=== PATIENT | female | born 1985 | race Two or more races ===

== ENCOUNTER 2016-09-06 10:27 | Emergency (ER) | payer OTHER ==
[2016-09-06] MEDS ORDERED: IPRATROPIUM 0.5MG/ALBUTEROL 2.5MG INH SOL UD 3ML (DUONEB)(J7620) As Ordered ONE (11:10)
[2016-09-06] MEDS ORDERED: ALBUTEROL SULFATE 2.5 MG/0.5 ML INH NEB SOLN As Ordered ONE (11:11)
[2016-09-06 11:27] LABS: BASO % 0.2 % (0.0-1.0); EOS # 0.1 K/mm3 (0.0-0.50); EOS % 1.1 % (0.0-3.0); LARGE UNSTAINED CELL # 0.2 K/mm3 (0.0-0.4); LARGE UNSTAINED CELL % 1.8 % (0.0-4.0); LYMPH # 1.5 K/mm3 (1.5-4.5); LYMPH % 14.6 % (24.0-44.0); MEAN CORPUSCULAR HEMOGLOBIN 30.6 pg (27.0-33.0); MEAN CORPUSCULAR HGB CONC 34.2 g/dl (32.0-36.5); MEAN CORPUSCULAR VOLUME 89.4 fl (80.0-96.0); MONO # 0.4 K/mm3 (0.0-0.8); MONO % 3.4 % (0.0-5.0); NEUTROPHILS # 8.1 K/mm3 (1.8-7.7); PLATELET COUNT, AUTOMATED 203 k/mm3 (150-450); RED CELL DISTRIBUTION WIDTH 12.6 % (11.5-14.5); WHITE BLOOD COUNT 10.3 K/mm3 (4.0-10.0)
[2016-09-06 11:49] LABS: ANION GAP 9 MEQ/L (8-16); BLOOD UREA NITROGEN 8 MG/DL (7-18); CALCIUM LEVEL 8.8 MG/DL (8.5-10.1); CARBON DIOXIDE LEVEL 24 MEQ/L (21-32); CHLORIDE LEVEL 105 MEQ/L (98-107); CREATININE FOR GFR 0.41 MG/DL (0.55-1.02); GLOMERULAR FILTRATION RATE > 60.0 (>60); GLUCOSE, FASTING 69 MG/DL (70-105); POTASSIUM SERUM 3.8 MEQ/L (3.5-5.1); SODIUM LEVEL 138 MEQ/L (136-145)
--- NOTE | 2016-09-06 12:04 | REP ---
BILATERAL LOWER EXTREMITY VENOUS DOPPLER, 09/06/2016: Indication: Left groin pain, shortness of breath, exclude DVT, the patient is 26 weeks . RIGHT LOWER EXTREMITY FINDINGS: Color-flow, spectral wave, and osorio scale imaging were used to evaluate the deep right lower extremity veins at common femoral, superficial femoral and popliteal venous levels. There is normal compressibility of veins at the above stated levels. There is normal response to augmentation of flow. The profunda femoris vein is also patent. IMPRESSION: No evidence of DVT in the right lower extremity. LEFT LOWER EXTREMITY FINDINGS: Color-flow, spectral wave, and osorio scale imaging were used to evaluate the deep left lower extremity vein, common femoral, superficial femoral and popliteal venous levels. There is normal compressibility of veins at the above stated levels. There is normal response to augmentation of flow. The profunda femoris vein is also patent. IMPRESSION: No evidence of DVT in the left lower extremity. Signed by Georgia Goddard MD 09/07/2016 07:29 P
[2016-09-06] MEDS ORDERED: ISOVUE-370 76% 100ML VIAL (Q9967) As Ordered ONE (12:33)
--- NOTE | 2016-09-06 13:15 | REP ---
Clinical: Acute chest pain and shortness of breath. Technique: Axial contrast enhanced images from the thoracic inlet to the upper abdomen using 100 ml Isovue 370 intravenous contrast material with coronal and sagittal re-formations. Findings: Satisfactory enhancement of the pulmonary vasculature is achieved and no filling defects are identified to suggest pulmonary embolus. Thoracic aorta is normal caliber without aneurysm or dissection. Heart and pericardium are normal. Bilateral lung villegas are well aerated and clear without acute pulmonary parenchymal consolidation or atelectasis. No nodule or mass lesion. No pleural effusion/reaction. No pneumothorax. No adenopathy. Impression: No evidence for pulmonary embolus. No acute pleuroparenchymal or mediastinal process. Signed by Corby Sullivan MD 09/06/2016 01:07 P
[2016-09-06] MEDS ORDERED: ALBUTEROL 90 MCG/ACT 8GM HFA INHALER As Ordered ONE (14:02)
--- NOTE | 2016-09-06 14:15 | EDDOCDS ---
Physician Documentation [facility] Name: Nicol Peck Age: 31 yrs Sex: Female : 1985 Arrival Date: 09/06/2016 Time: 10:27 Bed 7 Private MD: Ravi Vargas [facility] Disposition: 09/06/16 13:48 Discharged to Home/Self Care. Impression: related conditions, unspecified, Dyspnea, Strain of adductor muscle, fascia and tendon of left thigh. - Condition is Stable. - Discharge Instructions: Groin Strain, Shortness of Breath, Second Trimester of , [id number]. - Medication Reconciliation, Local Pharmacy Hours form. - Follow up: Ravi Vargas [facility]; When: Tomorrow. Follow up: MATTHEW Naylor; When: Tomorrow. Follow up: Kendall Guallpa MD; When: 1 - 2 days. - Problem is an acute exacerbation. - Symptoms have improved. - Notes: follow up with megan vargas ob as discussed tomorrow. return if worsening symptoms Historical: - Allergies: no known allergies; - Home Meds: 1. Oral 1 tablet daily 2. Tylenol 325 mg Oral tab 2 tabs every 4 hours (Last dose: 09/05/2016) - PMHx: none; - PSHx: Carpal Tunnel Repair- Bilateral; - Social history: Smoking status: Patient states was never smoker of tobacco. No barriers to communication noted, The patient speaks fluent Belarusian. - Family history: Not pertinent. - : The pt / caregiver states he / she is not on anticoagulants. Home medication list is obtained from the patient. - Exposure Risk Screening:: None identified. 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 (152.40 cm); 13:04 BP 104 / 57 (auto/); jmk 13:04 Pulse 104 MON; jmk 13:11 Pulse 96 MON; Pulse Ox 95% ; jmk 13:12 BP 116 / 55 (auto/); k 14:11 BP 101 / 63; Pulse 92; Resp 18; Temp 98.0; k 10:37 Body Mass Index 31.25 (72.57 kg, 152.40 cm) marimar MDM: 10:56 ECG WITH READING ER PHYS+CARDIAG ordered. EDMS 11:08 IV Saline Lock ordered. ml 11:08 Door Repairer Bus/Pulse Ox/q 15 min VS ordered. ml 11:08 Rhythm Strip to chart ordered. ml 11:08 Albuterol-Ipratropium 3 ml Inhalation once ordered. ml 11:08 Call Respiratory ordered. ml 11:08 Albuterol 5 mg Nebulizer once ordered. ml 11:08 Call Respiratory ordered. ml 11:08 Heart Tones ordered. ml 11:09 CBC with Diff Ordered. EDMS 11:09 MED Profile Ordered. EDMS 11:09 CIP Ordered. EDMS 11:09 Troponin Ordered. EDMS 11:12 US Lower Extremities Bilateral R/O DVT Ordered. EDMS 11:13 Call Respiratory complete. lbd 11:13 Call Respiratory complete. lbd 11:57 CBC with Diff Reviewed. ml 11:57 MED Profile Reviewed. ml 11:57 CIP Reviewed. ml 11:57 Troponin Reviewed. ml 11:57 Misc. Nursing Order ordered. ml 12:19 CT Chest Angio R/O PE Ordered. EDMS 12:30 US Lower Extremities Bilateral R/O DVT Reviewed. ml 13:05 PCR was scanned into MEDHOST and attached to record. gb 13:52 Ventolin Inhaler 2 puffs Inhalation once; to go ordered. ml Administered Medications: 11:13 Drug: Albuterol-Ipratropium 3 ml [ipratropium-albuterol 0.5 mg-3 mg(2.5 mg base)/3 mL sd7 nebulization soln (3 mL)] Route: Inhalation; 11:20 Follow up: Response: Nebulizer completed sd7 11:13 Drug: Albuterol 5 mg [albuterol sulfate 2.5 mg/0.5 mL solution for nebulization (1 mL)] sd7 Route: Nebulizer; 11:20 Follow up: Response: Nebulizer completed sd7 Signatures: Dispatcher [employer] EDAK Berta Miller MD MD ml Daly, Linda, Dryland Farmer Unit lbd Sudarshan Bishop,RN RN jmk Milagro Kenyon, Reg Reg gb Maria De Jesus De Los Santos RT sd7 MTDD
--- NOTE | 2016-09-06 14:15 | EDDOCDS ---
Nurse's Notes [facility] Name: Nicol Peck Age: 31 yrs Sex: Female : 1985 Arrival Date: 09/06/2016 Time: 10:27 Bed 7 Private MD: Ravi Vargas [facility] Diagnosis: related conditions, unspecified;Dyspnea;Strain of adductor muscle, fascia and tendon of left thigh Presentation: 09/06 10:33 Presenting complaint: Patient states: states intermittent SOB x months . Onset before k . not increasing intensity or frequency. also has left groin pain without injury. 26 weeks. . cough that is non productive. Aspirin was not taken prior to arrival. Adult Sepsis Screening: The patient does not have new or worsening altered mentation. Patient's respiratory rate is less than 22. Systolic blood pressure is greater than 100. Patient has a qSOFA score of 0- Negative Sepsis Screen. Suicide/Homicide risk assessment- the patient denies having any suicidal and/or homicidal ideations and does not present with any other emotional, behavioral or mental health complaints. 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 Transition of care: patient was not received from another setting of care. 10:33 Acuity: ZHANE Level 3 [facility] 10:33 Method Of Arrival: Ambulance [facility] Triage Assessment: 10:37 General: Appears in no apparent distress. Pain: Location: mid back area, left mid back jmk and right mid back Pain currently is 3 out of 10 on a pain scale. HIV screening NA for this visit Offered previously. Cardiovascular: Capillary refill < 3 seconds Clubbing of nail beds is absent Heart tones S1 S2 present Edema is absent. Rhythm is regular Chest pain is described as Pain is 3 out of 10 on a pain scale. Respiratory: Airway Respiratory effort is even, unlabored, Respiratory pattern is regular, Breath sounds are clear bilaterally. GI: Abdomen is gravid. 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 Oral 1 tablet daily 2. Tylenol 325 mg Oral tab 2 tabs every 4 hours (Last dose: 09/05/2016) - PMHx: none; - PSHx: Carpal Tunnel Repair- Bilateral; - Social history: Smoking status: Patient states was never smoker of tobacco. No barriers to communication noted, The patient speaks fluent Italian. - Family history: Not pertinent. - : The pt / caregiver states he / she is not on anticoagulants. Home medication list is obtained from the patient. - Exposure Risk Screening:: None identified. Screenin:43 Screening information is obtained from the patient. Fall risk: No risks identified. jmk Assistance ADL's: requires no assistance with activities of daily living. Abuse/DV Screen: The patient / caregiver reports he/she is: not in a situation that causes fear, pain or injury. Nutritional screening: No deficits noted. Advance Directives: Currently, there is no health care proxy. There is no active DNR order. There is no living will. There is no Power of Motor Power Connector. Advance directive information has not previously been placed in an [facility] medical record. Further advance directive information is declined. home support is adequate. Assessment: 10:51 General: Appears no observed resp distress while at rest. Tachypnea with physical jmk exertion, and pain increases. Gravid uterus. FHT 156 and of good quality. reports adequate activity and denies bleeding. describes discomfort to left groin . without injury.. Cardiovascular: Capillary refill < 3 seconds Heart tones S1 S2 present Rhythm is regular. Respiratory: No deficits noted. Airway is patent Respiratory effort is even, unlabored, Respiratory pattern is regular, Breath sounds are clear bilaterally. 13:05 General: pt down and back from imaging. NAD noted. Denies pain, states she is hungry. ttb SR on monitor. Sat WNL on RA. . 13:13 General: Appears without resp distress when at rest. continues to fatigue with k conversation and physical activity.. 14:11 General: Appears without resp distress when at rest.. receptive to discharge. familiar [facility] with inhaler and spacer.. Vital Signs: 10:37 BP 107 / 61; Pulse 88; Resp 16; Temp 96.5(O); Pulse Ox 95% ; Weight 72.57 kg; Height 60 jmk in. (152.40 cm); 13:04 BP 104 / 57 (auto/); jmk 13:04 Pulse 104 MON; jmk 13:11 Pulse 96 MON; Pulse Ox 95% ; jmk 13:12 BP 116 / 55 (auto/); jmk 14:11 BP 101 / 63; Pulse 92; Resp 18; Temp 98.0; jmk 10:37 Body Mass Index 31.25 (72.57 kg, 152.40 cm) [facility] Vitals: 10:37 Log In Time N/A - ambulance arrival. jmk 11:18 Heart Tones 156BPM. kc3 ED Course: 10:28 Patient visited by Mame Pierre, Aoc Director Combat Operations Officer. lbd 10:28 Patient moved to Waiting lbd 10:29 [place], [facility] is Private Physician. lbd 10:29 Patient moved to 7 lbd 10:36 Triage Initiated jmk 10:43 The patient / caregiver is instructed regarding the plan of care and ED course. jmk 10:54 Patient visited by Sudarshan Bishop,RN. jmk 10:55 Berta Miller MD is Attending Physician. ml 10:55 Patient visited by Berta Miller MD. ml 11:00 Inserted saline lock: 20 gauge. jmk 11:07 Patient visited by Adriano Chirinos PCA. jlf 11:07 Patient visited by Adriano Chirinos PCA. jlf 11:07 EKG done. (by ED staff). Reviewed by Berta Miller MD. jlf 11:27 Patient moved to Ultrasound hgl 11:43 Patient moved to 7 hgl 12:03 Patient visited by Adriano Chirinos PCA. jlf 12:19 US Lower Extremities Bilateral R/O DVT Returned. EDMS 12:43 Patient visited by Adriano Chirinos PCA. jlf 13:05 PCR was scanned into [employer] and attached to record. gb 13:07 Patient visited by Luna Palma, CHRISTAL. ttb 13:14 Patient visited by Sudarshan Bishop,CHRISTAL. jmk 13:48 [place], [facility] is Referral Physician. ml 13:48 Ravi Vargas, OB is Referral Physician. ml 13:48 Kendall Guallpa MD is Referral Physician. ml 14:11 CT Chest Angio R/O PE Returned. EDMS 14:14 Discontinued intact, bleeding controlled, pressure dressing applied, No [facility] redness/swelling at site. Administered Medications: 11:13 Drug: Albuterol-Ipratropium 3 ml [ipratropium-albuterol 0.5 mg-3 mg(2.5 mg base)/3 mL nebulization soln (3 mL)] Route: Inhalation; 11:20 Follow up: Response: Nebulizer completed 11:13 Drug: Albuterol 5 mg [albuterol sulfate 2.5 mg/0.5 mL solution for nebulization (1 mL)] Route: Nebulizer; 11:20 Follow up: Response: Nebulizer completed RT: 11:15 Initial Med Neb Given as ordered Patient was instructed and evaluated on procedure Patient tolerated procedure well without adverse effect. Respiratory: Airway is patent Respiratory effort is unlabored, Respiratory pattern is regular Breath sounds are clear bilaterally. Breath sounds are diminished bilaterally. Order Results: Lab Order: CBC with Diff; SPEC'M 09/06/16 10:56 Test: WHITE BLOOD COUNT; Value: 10.3; Range: 4.0-10.0; Abnormal: Above high normal; Units: K/mm3; Status: F Test: RED BLOOD COUNT; Value: 4.34; Range: 4.00-5.40; Units: M/mm3; Status: F Test: HEMOGLOBIN; Value: 13.3; Range: 12.0-16.0; Units: g/dl; Status: F Test: HEMATOCRIT; Value: 38.8; Range: 36.0-47.0; Units: %; Status: F Test: MEAN CORPUSCULAR VOLUME; Value: 89.4; Range: 80.0-96.0; Units: fl; Status: F Test: MEAN CORPUSCULAR HEMOGLOBIN; Value: 30.6; Range: 27.0-33.0; Units: pg; Status: F Test: MEAN CORPUSCULAR HGB CONC; Value: 34.2; Range: 32.0-36.5; Units: g/dl; Status: F Test: RED CELL DISTRIBUTION WIDTH; Value: 12.6; Range: 11.5-14.5; Units: %; Status: F Test: PLATELET COUNT, AUTOMATED; Value: 203; Range: 150-450; Units: k/mm3; Status: F Test: NEUTROPHILS %; Value: 79.0; Range: 36.0-66.0; Abnormal: Above high normal; Units: %; Status: F Test: LYMPH %; Value: 14.6; Range: 24.0-44.0; Abnormal: Below low normal; Units: %; Status: F Test: MONO %; Value: 3.4; Range: 0.0-5.0; Units: %; Status: F Test: EOS %; Value: 1.1; Range: 0.0-3.0; Units: %; Status: F Test: BASO %; Value: 0.2; Range: 0.0-1.0; Units: %; Status: F Test: LARGE UNSTAINED CELL %; Value: 1.8; Range: 0.0-4.0; Units: %; Status: F Test: NEUTROPHILS #; Value: 8.1; Range: 1.8-7.7; Abnormal: Above high normal; Units: K/mm3; Status: F Test: LYMPH #; Value: 1.5; Range: 1.5-4.5; Units: K/mm3; Status: F Test: MONO #; Value: 0.4; Range: 0.0-0.8; Units: K/mm3; Status: F Test: EOS #; Value: 0.1; Range: 0.0-0.50; Units: K/mm3; Status: F Test: BASO #; Value: 0.0; Range: 0.0-0.2; Units: K/mm3; Status: F Test: LARGE UNSTAINED CELL #; Value: 0.2; Range: 0.0-0.4; Units: K/mm3; Status: F Lab Order: [facility]; [facility]' 09/06/16 10:56 Test: GLUCOSE, FASTING; Value: 69; Range: 70-105; Abnormal: Below low normal; Units: MG/DL; Status: F Test: BLOOD UREA NITROGEN; Value: 8; Range: 7-18; Units: MG/DL; Status: F Test: CREATININE FOR GFR; Value: 0.41; Range: 0.55-1.02; Abnormal: Below low normal; Units: MG/DL; Status: F Test: GLOMERULAR FILTRATION RATE; Value: > 60.0; Range: >60; Status: F Test: SODIUM LEVEL; Value: 138; Range: 136-145; Units: MEQ/L; Status: F Test: POTASSIUM SERUM; Value: 3.8; Range: 3.5-5.1; Units: MEQ/L; Status: F Test: CHLORIDE LEVEL; Value: 105; Range: 98-107; Units: MEQ/L; Status: F Test: CARBON DIOXIDE LEVEL; Value: 24; Range: 21-32; Units: MEQ/L; Status: F Test: ANION GAP; Value: 9; Range: 8-16; Units: MEQ/L; Status: F Test: CALCIUM LEVEL; Value: 8.8; Range: 8.5-10.1; Units: MG/DL; Status: F Test Note: ; Units are mL/min/1.73 m2 Chronic Kidney Disease Staging per NKF: Stage I & II GFR >=60 Normal to Mildly Decreased Stage III GFR 30-59 Moderately Decreased Stage IV GFR 15-29 Severely Decreased Stage V GFR <15 Very Little GFR Left ESRD GFR <15 on CREATIVE ENGAGEMENT DIRECTOR Lab Order: CIP; SPEC'M 09/06/16 10:56 Test: CPK CREATINE PHOSPHOKINASE; Value: 25; Range: 26-192; Abnormal: Below low normal; Units: U/L; Status: F Test: CK-MB VALUE MASS; Value: 1.0; Range: 0.0-3.6; Units: NG/ML; Status: F Test: MB/CK RELATIVE INDEX; Value: 4.00; Range: < OR =4; Status: F Test Note: ; DIAGNOSIS CRITERIA MMB ng/ml Relative Index (RI) NON-AMI < or = 5 N/A FIELDS ZONE > 5 < or = 4 AMI > 5 > 4 Lab Order: Troponin; SPEC'M 09/06/16 10:56 Test: TROPONIN I; Value: < 0.02; Range: < 0.10; Units: NG/ML; Status: F Test Note: ; Troponin I Reference Interval for Biletu LOCI: 99th Percentile= 0.00-0.045 ng/ml Risk Stratification: <= 0.10 ng/ml Decreased Risk for Adverse Clinical Events. 0.10-1.50 ng/ml Increased Risk for Adverse Clinical Events. Evaluation of additional criterion and/or repeat testing in 2-6 hours is suggested to rule out myocardial damage. >= 1.50 ng/ml Indicative of Myocardial Injury. Radiology Order: US Lower Extremities Bilateral R/O DVT Test: US Lower Extremities Bilateral R/O DVT REASON FOR EXAMINATION: left gron pain ru dvt, assess both legs as sob; BILATERAL LOWER EXTREMITY VENOUS DOPPLER, 09/06/2016:; ; Indication: Left groin pain, shortness of breath, exclude DVT, the patient is 26; weeks .; ; RIGHT LOWER EXTREMITY FINDINGS:; Color-flow, spectral wave, and fields scale imaging were used to evaluate the lower; extremity vein, common femoral, superficial femoral and popliteal venous levels.; There is normal compressibility of veins at the above stated levels. There is; normal response to augmentation of flow. The profunda femoris vein is also; patent.; ; IMPRESSION:; No evidence of DVT in the right lower extremity.; ; LEFT LOWER EXTREMITY FINDINGS:; Color-flow, spectral wave, and fields scale imaging were used to evaluate the lower; extremity vein, common femoral, superficial femoral and popliteal venous levels.; There is normal compressibility of veins at the above stated levels. There is; normal response to augmentation of flow. The profunda femoris vein is also; patent.; ; IMPRESSION:; No evidence of DVT in the left lower extremity.; ; ; ; ; ; ; ; ; ; Unreviewed; Radiology Order: CT Chest Angio R/O PE Test: CT Chest Angio R/O PE REASON FOR EXAMINATION: sob; Clinical: Acute chest pain and shortness of breath.; ; Technique: Axial contrast enhanced images from the thoracic inlet to the upper; abdomen using 100 ml Isovue 370 intravenous contrast material with coronal and; sagittal re-formations.; ; Findings: Satisfactory enhancement of the pulmonary vasculature is achieved and; no filling defects are identified to suggest pulmonary embolus. Thoracic aorta; is normal caliber without aneurysm or dissection. Heart and pericardium are; normal. Bilateral lung villegas are well aerated and clear without acute pulmonary; parenchymal consolidation or atelectasis. No nodule or mass lesion. No pleural; effusion/reaction. No pneumothorax. No adenopathy.; ; Impression:; No evidence for pulmonary embolus.; No acute pleuroparenchymal or mediastinal process.; ; ; Signed by; Corby Sullivan MD 09/06/2016 01:07 P; Outcome: 13:48 Discharge ordered by Provider. ml 14:14 Discharge Assessment: Patient awake, alert and oriented x 3. No cognitive and/or jmk functional deficits noted. Patient verbalized understanding of disposition instructions. patient administered narcotics - no. The following High Risk Discharge criteria are identified: None. Condition: good. Discharge instructions given to patient, Instructed on discharge instructions, follow up and referral plans. medication usage, Demonstrated understanding of instructions, medications, Pt was receptive of discharge instructions/ teaching. CT Study completed. Property :Personal belongings accompany Pt. 14:14 Patient left the ED. giovanni Signatures: Dispatcher [employer] EDMS Berta Miller MD MD ml Mame Pierre, Aoc Director Combat Operations Officer Unit lbd Sudarshan Bishop,RN RN Milagro Whitehead, Reg Reg gb Ly, Vladimir hgl Luna Palma, RN RN ttb Adriano Chirinos, CERTIFIED CYTOTECHNOLOGIST CERTIFIED CYTOTECHNOLOGIST jlf Maria De Jesus De Los Santos,RT RT sd7 Radha Casas,RN RN kc3 Corrections: (The following items were deleted from the chart) 10:43 10:33 Presenting complaint: Patient states: states intermittent SOB x months . not jmk increasing intensity or frequency. also has left groin pain without injury. 26 weeks. . cough that is non productive. giovanni MTDD
--- NOTE | 2016-09-06 18:09 | ECGEPIP ---
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
--- NOTE | 2016-09-08 15:16 | EDDOCDS ---
Physician Documentation [facility] Name: Nicol Peck Age: 31 yrs Sex: Female : 1985 Arrival Date: 09/06/2016 Time: 10:27 Bed 7 Private MD: Ravi Vargas [facility] Disposition: 09/06/16 13:48 Discharged to Home/Self Care. Impression: related conditions, unspecified, Dyspnea, Strain of adductor muscle, fascia and tendon of left thigh. - Condition is Stable. - Discharge Instructions: Groin Strain, Shortness of Breath, Second Trimester of , [id number]. - Medication Reconciliation, Local Pharmacy Hours form. - Follow up: Ravi Vargas [facility]; When: Tomorrow. Follow up: MATTHEW Naylor; When: Tomorrow. Follow up: Kendall Guallpa MD; When: 1 - 2 days. - Problem is an acute exacerbation. - Symptoms have improved. - Notes: follow up with megan vargas ob as discussed tomorrow. return if worsening symptoms Historical: - Allergies: no known allergies; - Home Meds: 1. Oral 1 tablet daily 2. Tylenol 325 mg Oral tab 2 tabs every 4 hours (Last dose: 09/05/2016) - PMHx: none; - PSHx: Carpal Tunnel Repair- Bilateral; - Social history: Smoking status: Patient states was never smoker of tobacco. No barriers to communication noted, The patient speaks fluent Armenian. - Family history: Not pertinent. - : The pt / caregiver states he / she is not on anticoagulants. Home medication list is obtained from the patient. - Exposure Risk Screening:: None identified. PET CARE ATTENDANT: 09/06 10:37 4, Full Term 2, LMP 03/08/2016, Verified, EDC 12/13/2016, Gestational jmk age from LMP: 26 weeks 0 days Vital Signs: 10:37 BP 107 / 61; Pulse 88; Resp 16; Temp 96.5(O); Pulse Ox 95% ; Weight 72.57 kg / 159.99 jmk lbs; Height 60 in. (152.40 cm); 13:04 BP 104 / 57 (auto/); jmk 13:04 Pulse 104 MON; jmk 13:11 Pulse 96 MON; Pulse Ox 95% ; jmk 13:12 BP 116 / 55 (auto/); k 14:11 BP 101 / 63; Pulse 92; Resp 18; Temp 98.0; k 10:37 Body Mass Index 31.25 (72.57 kg, 152.40 cm) marimar MDM: 10:56 ECG WITH READING ER PHYS+CARDIAG ordered. EDMS 11:08 IV Saline Lock ordered. ml 11:08 Oral Hygienist/Pulse Ox/q 15 min VS ordered. ml 11:08 Rhythm Strip to chart ordered. ml 11:08 Albuterol-Ipratropium 3 ml Inhalation once ordered. ml 11:08 Call Respiratory ordered. ml 11:08 Albuterol 5 mg Nebulizer once ordered. ml 11:08 Call Respiratory ordered. ml 11:08 Heart Tones ordered. ml 11:09 CBC with Diff Ordered. EDMS 11:09 MED Profile Ordered. EDMS 11:09 CIP Ordered. EDMS 11:09 Troponin Ordered. EDMS 11:12 US Lower Extremities Bilateral R/O DVT Ordered. EDMS 11:13 Call Respiratory complete. lbd 11:13 Call Respiratory complete. lbd 11:57 CBC with Diff Reviewed. ml 11:57 MED Profile Reviewed. ml 11:57 CIP Reviewed. ml 11:57 Troponin Reviewed. ml 11:57 Misc. Nursing Order ordered. ml 12:19 CT Chest Angio R/O PE Ordered. EDMS 12:30 US Lower Extremities Bilateral R/O DVT Reviewed. ml 13:05 PCR was scanned into [employer] and attached to record. gb 13:52 Ventolin Inhaler 2 puffs Inhalation once; to go ordered. ml 15:21 T-Sheet-- Draft Copy was scanned into [employer] and attached to record. gb 15:21 ECG/EKG was scanned into [employer] and attached to record. gb 15:21 Radiology Report was scanned into [employer] and attached to record. gb 01 10:49 [facility] Payment Agreement was scanned into [employer] and attached to record. lg Administered Medications: 09/06 11:13 Drug: Albuterol-Ipratropium 3 ml [ipratropium-albuterol 0.5 mg-3 mg(2.5 mg base)/3 mL sd7 nebulization soln (3 mL)] Route: Inhalation; 11:20 Follow up: Response: Nebulizer completed sd 11:13 Drug: Albuterol 5 mg [albuterol sulfate 2.5 mg/0.5 mL solution for nebulization (1 mL)] Route: Nebulizer; 11:20 Follow up: Response: Nebulizer completed Signatures: Dispatcher [employer] EDMS Berta Miller MD MD ml Mame Pierre, Finance Effectiveness Manager Unit lbd Sudarshan Bishop,RN RN jmk Milagro Kenyon, Reg Reg gb Tk Tyler, Reg Reg lg Maria De Jesus De Los Santos RT The chart was reviewed and I authenticate all verbal orders and agree with the evaluation and treatment provided.Attachments: 15:21 T-Sheet-- Draft Copy gb 15:21 ECG/EKG gb 09/07 10:49 [facility] Payment Agreement lg Chart [facility]
--- NOTE | 2016-09-08 15:16 | EDDOCDS ---
Physician Documentation [facility] Name: Nicol Peck Age: 31 yrs Sex: Female : 1985 Arrival Date: 09/06/2016 Time: 10:27 Bed 7 Private MD: Ravi Vargas [facility] Disposition: 09/06/16 13:48 Discharged to Home/Self Care. Impression: related conditions, unspecified, Dyspnea, Strain of adductor muscle, fascia and tendon of left thigh. - Condition is Stable. - Discharge Instructions: Groin Strain, Shortness of Breath, Second Trimester of , [id number]. - Medication Reconciliation, Local Pharmacy Hours form. - Follow up: Ravi Vargas [facility]; When: Tomorrow. Follow up: MATTHEW Naylor; When: Tomorrow. Follow up: Kendall Guallpa MD; When: 1 - 2 days. - Problem is an acute exacerbation. - Symptoms have improved. - Notes: follow up with megan vargas ob as discussed tomorrow. return if worsening symptoms Historical: - Allergies: no known allergies; - Home Meds: 1. Oral 1 tablet daily 2. Tylenol 325 mg Oral tab 2 tabs every 4 hours (Last dose: 09/05/2016) - PMHx: none; - PSHx: Carpal Tunnel Repair- Bilateral; - Social history: Smoking status: Patient states was never smoker of tobacco. No barriers to communication noted, The patient speaks fluent Luxembourgish. - Family history: Not pertinent. - : The pt / caregiver states he / she is not on anticoagulants. Home medication list is obtained from the patient. - Exposure Risk Screening:: None identified. CLERK TRAVEL RESERVATIONS: 09/06 10:37 4, Full Term 2, LMP 03/08/2016, Verified, EDC 12/13/2016, Gestational jmk age from LMP: 26 weeks 0 days Vital Signs: 10:37 BP 107 / 61; Pulse 88; Resp 16; Temp 96.5(O); Pulse Ox 95% ; Weight 72.57 kg / 159.99 jmk lbs; Height 60 in. (152.40 cm); 13:04 BP 104 / 57 (auto/); jmk 13:04 Pulse 104 MON; jmk 13:11 Pulse 96 MON; Pulse Ox 95% ; jmk 13:12 BP 116 / 55 (auto/); k 14:11 BP 101 / 63; Pulse 92; Resp 18; Temp 98.0; k 10:37 Body Mass Index 31.25 (72.57 kg, 152.40 cm) marimar MDM: 10:56 ECG WITH READING ER PHYS+CARDIAG ordered. EDMS 11:08 IV Saline Lock ordered. ml 11:08 Diesel Service Technician/Pulse Ox/q 15 min VS ordered. ml 11:08 Rhythm Strip to chart ordered. ml 11:08 Albuterol-Ipratropium 3 ml Inhalation once ordered. ml 11:08 Call Respiratory ordered. ml 11:08 Albuterol 5 mg Nebulizer once ordered. ml 11:08 Call Respiratory ordered. ml 11:08 Heart Tones ordered. ml 11:09 CBC with Diff Ordered. EDMS 11:09 MED Profile Ordered. EDMS 11:09 CIP Ordered. EDMS 11:09 Troponin Ordered. EDMS 11:12 US Lower Extremities Bilateral R/O DVT Ordered. EDMS 11:13 Call Respiratory complete. lbd 11:13 Call Respiratory complete. lbd 11:57 CBC with Diff Reviewed. ml 11:57 MED Profile Reviewed. ml 11:57 CIP Reviewed. ml 11:57 Troponin Reviewed. ml 11:57 Misc. Nursing Order ordered. ml 12:19 CT Chest Angio R/O PE Ordered. EDMS 12:30 US Lower Extremities Bilateral R/O DVT Reviewed. ml 13:05 PCR was scanned into [employer] and attached to record. gb 13:52 Ventolin Inhaler 2 puffs Inhalation once; to go ordered. ml 15:21 T-Sheet-- Draft Copy was scanned into [employer] and attached to record. gb 15:21 ECG/EKG was scanned into [employer] and attached to record. gb 15:21 Radiology Report was scanned into [employer] and attached to record. gb 01 10:49 [facility] Payment Agreement was scanned into [employer] and attached to record. lg Administered Medications: 09/06 11:13 Drug: Albuterol-Ipratropium 3 ml [ipratropium-albuterol 0.5 mg-3 mg(2.5 mg base)/3 mL sd7 nebulization soln (3 mL)] Route: Inhalation; 11:20 Follow up: Response: Nebulizer completed sd 11:13 Drug: Albuterol 5 mg [albuterol sulfate 2.5 mg/0.5 mL solution for nebulization (1 mL)] Route: Nebulizer; 11:20 Follow up: Response: Nebulizer completed Signatures: Dispatcher [employer] EDMS Berta Miller MD MD ml Mame Pierre, Records Technician Unit lbd Sudarshan Bishop,RN RN jmk Milagro Kenyon, Reg Reg gb Tk Tyler, Reg Reg lg Maria De Jesus De Los Santos RT The chart was reviewed and I authenticate all verbal orders and agree with the evaluation and treatment provided.Attachments: 15:21 T-Sheet-- Draft Copy gb 15:21 ECG/EKG gb 09/07 10:49 [facility] Payment Agreement lg Chart [facility]
--- NOTE | 2016-09-08 15:16 | EDDOCDS ---
Nurse's Notes [facility] Name: Nicol Peck Age: 31 yrs Sex: Female : 1985 Arrival Date: 09/06/2016 Time: 10:27 Bed 7 Private MD: Ravi Vargas [facility] Diagnosis: related conditions, unspecified;Dyspnea;Strain of adductor muscle, fascia and tendon of left thigh Presentation: 09/06 10:33 Presenting complaint: Patient states: states intermittent SOB x months . Onset before k . not increasing intensity or frequency. also has left groin pain without injury. 26 weeks. . cough that is non productive. Aspirin was not taken prior to arrival. Adult Sepsis Screening: The patient does not have new or worsening altered mentation. Patient's respiratory rate is less than 22. Systolic blood pressure is greater than 100. Patient has a qSOFA score of 0- Negative Sepsis Screen. Suicide/Homicide risk assessment- the patient denies having any suicidal and/or homicidal ideations and does not present with any other emotional, behavioral or mental health complaints. 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 Transition of care: patient was not received from another setting of care. 10:33 Acuity: ZHANE Level 3 [facility] 10:33 Method Of Arrival: Ambulance [facility] Triage Assessment: 10:37 General: Appears in no apparent distress. Pain: Location: mid back area, left mid back jmk and right mid back Pain currently is 3 out of 10 on a pain scale. HIV screening NA for this visit Offered previously. Cardiovascular: Capillary refill < 3 seconds Clubbing of nail beds is absent Heart tones S1 S2 present Edema is absent. Rhythm is regular Chest pain is described as Pain is 3 out of 10 on a pain scale. Respiratory: Airway Respiratory effort is even, unlabored, Respiratory pattern is regular, Breath sounds are clear bilaterally. GI: Abdomen is gravid. MATERIAL CLERK: 10:37 4, Full Term 2, LMP 03/08/2016, Verified, EDC 12/13/2016, Gestational jmk age from LMP: 26 weeks 0 days Historical: - Allergies: no known allergies; - Home Meds: 1. Oral 1 tablet daily 2. Tylenol 325 mg Oral tab 2 tabs every 4 hours (Last dose: 09/05/2016) - PMHx: none; - PSHx: Carpal Tunnel Repair- Bilateral; - Social history: Smoking status: Patient states was never smoker of tobacco. No barriers to communication noted, The patient speaks fluent South African. - Family history: Not pertinent. - : The pt / caregiver states he / she is not on anticoagulants. Home medication list is obtained from the patient. - Exposure Risk Screening:: None identified. Screenin:43 Screening information is obtained from the patient. Fall risk: No risks identified. jmk Assistance ADL's: requires no assistance with activities of daily living. Abuse/DV Screen: The patient / caregiver reports he/she is: not in a situation that causes fear, pain or injury. Nutritional screening: No deficits noted. Advance Directives: Currently, there is no health care proxy. There is no active DNR order. There is no living will. There is no Power of Bench Molder. Advance directive information has not previously been placed in an [facility] medical record. Further advance directive information is declined. home support is adequate. Assessment: 10:51 General: Appears no observed resp distress while at rest. Tachypnea with physical jmk exertion, and pain increases. Gravid uterus. FHT 156 and of good quality. reports adequate activity and denies bleeding. describes discomfort to left groin . without injury.. Cardiovascular: Capillary refill < 3 seconds Heart tones S1 S2 present Rhythm is regular. Respiratory: No deficits noted. Airway is patent Respiratory effort is even, unlabored, Respiratory pattern is regular, Breath sounds are clear bilaterally. 13:05 General: pt down and back from imaging. NAD noted. Denies pain, states she is hungry. ttb SR on monitor. Sat WNL on RA. . 13:13 General: Appears without resp distress when at rest. continues to fatigue with k conversation and physical activity.. 14:11 General: Appears without resp distress when at rest.. receptive to discharge. familiar [facility] with inhaler and spacer.. Vital Signs: 10:37 BP 107 / 61; Pulse 88; Resp 16; Temp 96.5(O); Pulse Ox 95% ; Weight 72.57 kg; Height 60 jmk in. (152.40 cm); 13:04 BP 104 / 57 (auto/); jmk 13:04 Pulse 104 MON; jmk 13:11 Pulse 96 MON; Pulse Ox 95% ; jmk 13:12 BP 116 / 55 (auto/); jmk 14:11 BP 101 / 63; Pulse 92; Resp 18; Temp 98.0; jmk 10:37 Body Mass Index 31.25 (72.57 kg, 152.40 cm) [facility] Vitals: 10:37 Log In Time N/A - ambulance arrival. jmk 11:18 Heart Tones 156BPM. kc3 ED Course: 10:28 Patient visited by Mame Pierre, [employer]. lbd 10:28 Patient moved to Waiting lbd 10:29 [facility] is Private Physician. lbd 10:29 Patient moved to 7 lbd 10:36 Triage Initiated jmk 10:43 The patient / caregiver is instructed regarding the plan of care and ED course. jmk 10:54 Patient visited by Sudarshan Bishop,RN. jmk 10:55 Berta Miller MD is Attending Physician. ml 10:55 Patient visited by Berta Miller MD. ml 11:00 Inserted saline lock: 20 gauge. jmk 11:07 Patient visited by Adriano Chirinos PCA. jlf 11:07 Patient visited by Adriano Chirinos PCA. jlf 11:07 EKG done. (by ED staff). Reviewed by Berta Miller MD. jlf 11:27 Patient moved to Ultrasound hgl 11:43 Patient moved to 7 hgl 12:03 Patient visited by Adriano Chirinos PCA. jlf 12:19 US Lower Extremities Bilateral R/O DVT Returned. EDMS 12:43 Patient visited by Adriano Chirinos PCA. jlf 13:05 PCR was scanned into [employer] and attached to record. gb 13:07 Patient visited by Luna Palma, CHRISTAL. ttb 13:14 Patient visited by Sudarshan Bishop,CHRISTAL. jmk 13:48 [facility], [facility] is Referral Physician. ml 13:48 Ravi Vargas, OB is Referral Physician. ml 13:48 Kendall Guallpa MD is Referral Physician. ml 14:11 CT Chest Angio R/O PE Returned. EDMS 14:14 Discontinued intact, bleeding controlled, pressure dressing applied, No k redness/swelling at site. 15:21 T-Sheet-- Draft Copy was scanned into [employer] and attached to record. gb 15:21 ECG/EKG was scanned into [employer] and attached to record. gb 15:21 Radiology Report was scanned into [employer] and attached to record. gb 18:09 EKG-ADULT Returned. EDMS 09/07 10:48 Patient name changed from Nicol\S\\S\Peck\S\ to Nicol\S\Jazzmine\S\Peck. EDMS 10:49 [facility] Payment Agreement was scanned into [employer] and attached to record. lg 20:00 US Lower Extremities Bilateral R/O DVT Returned. EDMS Administered Medications: 09/06 11:13 Drug: Albuterol-Ipratropium 3 ml [ipratropium-albuterol 0.5 mg-3 mg(2.5 mg base)/3 mL sd7 nebulization soln (3 mL)] Route: Inhalation; 11:20 Follow up: Response: Nebulizer completed sd7 11:13 Drug: Albuterol 5 mg [albuterol sulfate 2.5 mg/0.5 mL solution for nebulization (1 mL)] sd7 Route: Nebulizer; 11:20 Follow up: Response: Nebulizer completed sd7 RT: 11:15 Initial Med Neb Given as ordered Patient was instructed and evaluated on procedure sd7 Patient tolerated procedure well without adverse effect. Respiratory: Airway is patent Respiratory effort is unlabored, Respiratory pattern is regular Breath sounds are clear bilaterally. Breath sounds are diminished bilaterally. Order Results: Lab Order: CBC with Diff; SPEC'M 09/06/16 10:56 Test: WHITE BLOOD COUNT; Value: 10.3; Range: 4.0-10.0; Abnormal: Above high normal; Units: K/mm3; Status: F Test: RED BLOOD COUNT; Value: 4.34; Range: 4.00-5.40; Units: M/mm3; Status: F Test: HEMOGLOBIN; Value: 13.3; Range: 12.0-16.0; Units: g/dl; Status: F Test: HEMATOCRIT; Value: 38.8; Range: 36.0-47.0; Units: %; Status: F Test: MEAN CORPUSCULAR VOLUME; Value: 89.4; Range: 80.0-96.0; Units: fl; Status: F Test: MEAN CORPUSCULAR HEMOGLOBIN; Value: 30.6; Range: 27.0-33.0; Units: pg; Status: F Test: MEAN CORPUSCULAR HGB CONC; Value: 34.2; Range: 32.0-36.5; Units: g/dl; Status: F Test: RED CELL DISTRIBUTION WIDTH; Value: 12.6; Range: 11.5-14.5; Units: %; Status: F Test: PLATELET COUNT, AUTOMATED; Value: 203; Range: 150-450; Units: k/mm3; Status: F Test: NEUTROPHILS %; Value: 79.0; Range: 36.0-66.0; Abnormal: Above high normal; Units: %; Status: F Test: LYMPH %; Value: 14.6; Range: 24.0-44.0; Abnormal: Below low normal; Units: %; Status: F Test: MONO %; Value: 3.4; Range: 0.0-5.0; Units: %; Status: F Test: EOS %; Value: 1.1; Range: 0.0-3.0; Units: %; Status: F Test: BASO %; Value: 0.2; Range: 0.0-1.0; Units: %; Status: F Test: LARGE UNSTAINED CELL %; Value: 1.8; Range: 0.0-4.0; Units: %; Status: F Test: NEUTROPHILS #; Value: 8.1; Range: 1.8-7.7; Abnormal: Above high normal; Units: K/mm3; Status: F Test: LYMPH #; Value: 1.5; Range: 1.5-4.5; Units: K/mm3; Status: F Test: MONO #; Value: 0.4; Range: 0.0-0.8; Units: K/mm3; Status: F Test: EOS #; Value: 0.1; Range: 0.0-0.50; Units: K/mm3; Status: F Test: BASO #; Value: 0.0; Range: 0.0-0.2; Units: K/mm3; Status: F Test: LARGE UNSTAINED CELL #; Value: 0.2; Range: 0.0-0.4; Units: K/mm3; Status: F Lab Order: MED Profile; SPEC'M 09/06/16 10:56 Test: GLUCOSE, FASTING; Value: 69; Range: 70-105; Abnormal: Below low normal; Units: MG/DL; Status: F Test: BLOOD UREA NITROGEN; Value: 8; Range: 7-18; Units: MG/DL; Status: F Test: CREATININE FOR GFR; Value: 0.41; Range: 0.55-1.02; Abnormal: Below low normal; Units: MG/DL; Status: F Test: GLOMERULAR FILTRATION RATE; Value: > 60.0; Range: >60; Status: F Test: SODIUM LEVEL; Value: 138; Range: 136-145; Units: MEQ/L; Status: F Test: POTASSIUM SERUM; Value: 3.8; Range: 3.5-5.1; Units: MEQ/L; Status: F Test: CHLORIDE LEVEL; Value: 105; Range: 98-107; Units: MEQ/L; Status: F Test: CARBON DIOXIDE LEVEL; Value: 24; Range: 21-32; Units: MEQ/L; Status: F Test: ANION GAP; Value: 9; Range: 8-16; Units: MEQ/L; Status: F Test: CALCIUM LEVEL; Value: 8.8; Range: 8.5-10.1; Units: MG/DL; Status: F Test Note: ; Units are mL/min/1.73 m2 Chronic Kidney Disease Staging per NKF: Stage I & II GFR >=60 Normal to Mildly Decreased Stage III GFR 30-59 Moderately Decreased Stage IV GFR 15-29 Severely Decreased Stage V GFR <15 Very Little GFR Left ESRD GFR <15 on SAMPLE BUILDER Lab Order: CIP; SPEC'M 09/06/16 10:56 Test: CPK CREATINE PHOSPHOKINASE; Value: 25; Range: 26-192; Abnormal: Below low normal; Units: U/L; Status: F Test: CK-MB VALUE MASS; Value: 1.0; Range: 0.0-3.6; Units: NG/ML; Status: F Test: MB/CK RELATIVE INDEX; Value: 4.00; Range: < OR =4; Status: F Test Note: ; DIAGNOSIS CRITERIA MMB ng/ml Relative Index (RI) NON-AMI < or = 5 N/A FIELDS ZONE > 5 < or = 4 AMI > 5 > 4 Lab Order: Troponin; SPEC'M 09/06/16 10:56 Test: TROPONIN I; Value: < 0.02; Range: < 0.10; Units: NG/ML; Status: F Test Note: ; Troponin I Reference Interval for [employer] [place] LOCI: 99th Percentile= 0.00-0.045 ng/ml Risk Stratification: <= 0.10 ng/ml Decreased Risk for Adverse Clinical Events. 0.10-1.50 ng/ml Increased Risk for Adverse Clinical Events. Evaluation of additional criterion and/or repeat testing in 2-6 hours is suggested to rule out myocardial damage. >= 1.50 ng/ml Indicative of Myocardial Injury. Radiology Order: US Lower Extremities Bilateral R/O DVT Test: US Lower Extremities Bilateral R/O DVT REASON FOR EXAMINATION: left gron pain ru dvt, assess both legs as sob; BILATERAL LOWER EXTREMITY VENOUS DOPPLER, 09/06/2016:; ; Indication: Left groin pain, shortness of breath, exclude DVT, the patient is 26; weeks .; ; RIGHT LOWER EXTREMITY FINDINGS:; ; Color-flow, spectral wave, and fields scale imaging were used to evaluate the deep; right lower extremity veins at common femoral, superficial femoral and popliteal; venous levels. There is normal compressibility of veins at the above stated; levels. There is normal response to augmentation of flow. The profunda femoris; vein is also patent.; ; IMPRESSION:; ; No evidence of DVT in the right lower extremity.; ; LEFT LOWER EXTREMITY FINDINGS:; ; Color-flow, spectral wave, and fields scale imaging were used to evaluate the deep; left lower extremity vein, common femoral, superficial femoral and popliteal; venous levels. There is normal compressibility of veins at the above stated; levels. There is normal response to augmentation of flow. The profunda femoris; vein is also patent.; ; IMPRESSION:; ; No evidence of DVT in the left lower extremity.; ; ; ; ; ; ; ; ; Signed by; Georgia Goddard MD 09/07/2016 07:29 P; Radiology Order: CT Chest Angio R/O PE Test: CT Chest Angio R/O PE REASON FOR EXAMINATION: sob; Clinical: Acute chest pain and shortness of breath.; ; Technique: Axial contrast enhanced images from the thoracic inlet to the upper; abdomen using 100 ml Isovue 370 intravenous contrast material with coronal and; sagittal re-formations.; ; Findings: Satisfactory enhancement of the pulmonary vasculature is achieved and; no filling defects are identified to suggest pulmonary embolus. Thoracic aorta; is normal caliber without aneurysm or dissection. Heart and pericardium are; normal. Bilateral lung villegas are well aerated and clear without acute pulmonary; parenchymal consolidation or atelectasis. No nodule or mass lesion. No pleural; effusion/reaction. No pneumothorax. No adenopathy.; ; Impression:; No evidence for pulmonary embolus.; No acute pleuroparenchymal or mediastinal process.; ; ; Signed by; Corby Sullivan MD 09/06/2016 01:07 P; Outcome: 13:48 Discharge ordered by Provider. ml 14:14 Discharge Assessment: Patient awake, alert and oriented x 3. No cognitive and/or jmk functional deficits noted. Patient verbalized understanding of disposition instructions. patient administered narcotics - no. The following High Risk Discharge criteria are identified: None. Condition: good. Discharge instructions given to patient, Instructed on discharge instructions, follow up and referral plans. medication usage, Demonstrated understanding of instructions, medications, Pt was receptive of discharge instructions/ teaching. CT Study completed. Property :Personal belongings accompany Pt. 14:14 Patient left the ED. giovanni Signatures: Dispatcher [employer] EDMS Berta Miller MD MD ml Mame Pierre, [employer]asting Unit lbd Sudarshan Bishop,RN RN Milagro Whitehead, Reg Reg gb Tk Tyler, Reg Reg lg Ly, Vladimir hgl Luna Palma, RN RN ttb Adriano Chirinos, DRY DRUG WORKER DRY DRUG WORKER jlf Maria De Jesus De Los Santos,RT RT sd7 Radha Casas,RN RN kc3 Corrections: (The following items were deleted from the chart) 10:43 10:33 Presenting complaint: Patient states: states intermittent SOB x months . not jmk increasing intensity or frequency. also has left groin pain without injury. 26 weeks. . cough that is non productive. jmk Chart Complete [facility]D
== END 2016-09-06 14:14 | disposition home or self-care (01) ==
LOC: M ED 10:27
DX: O26.892 Other specified pregnancy related conditions, second trimester (principal); O9A.212 Injury, poisoning and certain other consequences of external causes complicating pregnancy, second trimester; O99.89 Other specified diseases and conditions complicating pregnancy, childbirth and the puerperium; R06.00 Dyspnea, unspecified; Z3A.26 26 weeks gestation of pregnancy; Z79.899 Other long term (current) drug therapy; X58.XXXA Exposure to other specified factors, initial encounter; Y92.9 Unspecified place or not applicable; Y93.9 Activity, unspecified; Y99.9 Unspecified external cause status
CPT/HCPCS: 71275; 80048; 82550; 82553; 85025; 93005; 93041; 93970; 94640; 99284; Q9967

== ENCOUNTER 2016-10-03 17:03 | Outpatient (CLI) | payer OTHER ==
[~2016-10-03] VITALS: Ht 152.4 cm; Wt 73.0 kg
[2016-10-03 17:19] VITALS: BP 100/53
[2016-10-03] MEDS ORDERED: PRENTAB9 PO (17:22)
[2016-10-03 17:45] LABS: MEAN CORPUSCULAR HEMOGLOBIN 30.6 pg (27.0-33.0); MEAN CORPUSCULAR HGB CONC 34.2 g/dl (32.0-36.5); MEAN CORPUSCULAR VOLUME 89.5 fl (80.0-96.0); WHITE BLOOD COUNT 9.8 K/mm3 (4.0-10.0)
--- NOTE | 2016-10-03 20:35 | HPE ---
DATE OF ADMISSION: 10/03/2016 This is a 4, para 2, LMP of 03/08/2016, EDC 12/13/2016 at 29 and 3 with a history of a fall on the ice some right flank pain and strain. No contractions. No vaginal loss. She has had two full-term pregnancies before. Labs show O+, HIV negative, hep negative, RPR negative, rubella immune. Varicella immune. Pap normal. Urine negative. Gonorrhea and chlamydia negative. 1-hour glucose was 135, 3-hour GTT fasting 103, 1-hour 128, 2-hour 133, 3-hour 91. CF negative, sickle cell negative. Vitals show that her blood pressure 100/53, respirations are 18, pulse is 86, temperature 98.1. Hemoglobin 11.6, hematocrit 33.8, platelets are 162. Kleihauer Betke test is negative. Urine is 10/10, pH 6, negative, negative, negative. Symphysis fundus height is appropriate right side is tender. No bruising. No uterine irritability. Able to elevate her leg. Good motion laterally and medially. Good strength. Basically bruising of the lower abdominal muscles. Uterus is again nontender. NST is reactive with a category one strip. The rest of the examination is unremarkable. She did not lose any consciousness. She is normocephalic, atraumatic. Neck is full range of motion. Pupils equal and reactive to light. Distal pulses symmetric. No evidence of DVT, PE or superficial phlebitis. Lungs are clear bilaterally to bases. No wheezes or rhonchi. No CVA tenderness. Uterus is tender just on the right side. Fundus height is appropriate. Four quadrant bowel sounds are noted. No rashes or lesions or pruritus. No arthralgia, myalgia. No complaint of cough, wheezes, shortness of breath or dyspnea on exertion. She has no chest pain. She is not bleeding. She is neuro complete. No incontinence, urgency or frequency. No nausea, vomiting, diarrhea or constipation. 3-hour GTT was normal. 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 She does not smoke or drink abuse drugs. She has no domestic violence. 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 We gave her precautions regarding falls in kick chart, premature rupture of membranes, bleeding and when to call the provider. She was discharged undelivered. She has appointment with her centering group in the next week or so.
== END 2016-10-03 19:21 | disposition home or self-care (01) ==
LOC: M LDO 17:03
PROVIDERS: ATTEND Obstetrics & Gynecology
DX: O26.893 Other specified pregnancy related conditions, third trimester (principal); R10.9 Unspecified abdominal pain; Z3A.29 29 weeks gestation of pregnancy

== ENCOUNTER 2016-12-14 07:23 | Inpatient (IN) | payer OTHER ==
[~2016-12-14] VITALS: Ht 152.4 cm; Wt 74.0 kg
[2016-12-14] VITALS (9 sets, daily range): BP systolic 98–138; BP diastolic 52–75
[~2016-12-14 07:23] MED LIST: PRENTAB9 PO
[2016-12-14] MEDS ORDERED: LACTATED RINGER'S 1000 ML IV STA (08:08)
[2016-12-14] MEDS ORDERED: LR 1,000 ML IV SCH (08:08)
[2016-12-14 08:35] LABS: MEAN CORPUSCULAR HEMOGLOBIN 29.9 pg (27.0-33.0); MEAN CORPUSCULAR HGB CONC 33.2 g/dl (32.0-36.5); MEAN CORPUSCULAR VOLUME 90.1 fl (80.0-96.0); RED CELL DISTRIBUTION WIDTH 13.5 % (11.5-14.5); WHITE BLOOD COUNT 10.4 K/mm3 (4.0-10.0)
[2016-12-14] MEDS: PRENATAL VITAMIN TAB PO SCH (09:00)
[2016-12-14] MEDS ORDERED: FENTANYL 2MCG/ML ROPIVACAINE 0.2% IN 0.9% NACL 200ML IVBAG As Ordered ONE (09:31)
[2016-12-14] MEDS ORDERED: ePHEDrine SULFATE 25 MG/5 ML(5MG/ML) SYRINGE IV PRN (10:00)
[2016-12-14] MEDS ORDERED: EPIDURAL/PCA KEYS XX PRN (10:00)
[2016-12-14] MEDS ORDERED: NALOXONE INJ 0.4 MG/1 ML VIAL (J2310) IV PRN ×3 (10:00→14:47)
[2016-12-14] MEDS ORDERED: EPIDURAL COMMENT XX SCH (10:00)
[2016-12-14] MEDS ORDERED: ONDANSETRON 4MG/2ML VIAL (J2405) IV PRN ×3 (10:00→15:30)
[2016-12-14] MEDS ORDERED: diphenhydrAMINE INJ 50MG/ML VIAL (J1200) IV PRN (10:00)
[2016-12-14] MEDS ORDERED: LACTATED RINGER'S 1000 ML IV PRN (10:00)
[2016-12-14] MEDS ORDERED: REFRIGERATOR IV KEYS XX PRN (10:00)
[2016-12-14] MEDS ORDERED: FENTANYL/ROPIVACAINE/NACL BAG 200 ML EPIDURAL SCH (10:00)
[2016-12-14] MEDS ORDERED: OXYTOCIN DRIP 30 UNITS in APPROPRIATE DILUENT 1 EA IV SCH (12:10)
[2016-12-14] MEDS ORDERED: BICITRA 30ML SOLN UDC As Ordered ONE (14:07)
[2016-12-14] MEDS ORDERED: ceFAZolin 2 GM/D5W 50 ML IV BAG (J0690) As Ordered ONE (14:07)
[2016-12-14] MEDS ORDERED: LIDOCAINE 2% W/EPIN INJ 20ML **PRES FREE As Ordered ONE (14:36)
[2016-12-14] MEDS ORDERED: ONDANSETRON 4MG/2ML VIAL (J2405) As Ordered ONE (14:36)
[2016-12-14] MEDS ORDERED: CHLOROPROCAINE PRES. FREE 3% INJ 20 ML VIAL (J2400) As Ordered ONE (14:36)
[2016-12-14] MEDS ORDERED: SODIUM BICARBONATE 8.4% INJ 50MEQ 50 ML VIAL As Ordered ONE (14:36)
[2016-12-14] MEDS ORDERED: KETOROLAC 60 MG/2 ML VIAL (J1885) As Ordered ONE (14:44)
[2016-12-14 14:45] LABS: CORD GAS ABE A -5.6; CORD GAS HCO3 A 22.2 MEQ/L; CORD GAS O2 SAT A 25.8 %; CORD GAS PCO2 A 52.3 mmHg; CORD GAS PH A 7.246 UNITS; CORD GAS PO2 A 14.8 mmHg; CORD GAS SBC A 18.2 MEQ/L; CORD GAS TCO2 A 23.8 MEQ/L
[2016-12-14] MEDS ORDERED: MORPHINE PRES-FREE INJ 10 MG/10 ML VIAL (J2274) As Ordered ONE (14:45)
[2016-12-14 14:47] LABS: CORD GAS ABE V -4.4; CORD GAS HCO3 V 22.6 MEQ/L; CORD GAS O2 SAT V 55.5 %; CORD GAS PCO2 V 48.5 mmHg; CORD GAS PH V 7.287 UNITS; CORD GAS SBC V 19.9 MEQ/L; CORD GAS TCO2 V 24.1 MEQ/L
[2016-12-14] MEDS ORDERED: METOCLOPRAMIDE INJ 10MG/2ML VIAL (J2765) IV PRN (14:47)
[2016-12-14] MEDS ORDERED: NALBUPHINE HCL 10 MG/ML AMP (J2300) IV PRN (14:47)
[2016-12-14] MEDS ORDERED: MIDAZOLAM INJ 2 MG/2 ML VIAL (J2250) As Ordered ONE (14:56)
[2016-12-14] MEDS: LR 1,000 ML IV SCH ×2 (15:19→23:19)
[2016-12-14] MEDS ORDERED: METHYLERGONOVINE MALEATE 0.2 MG TAB PO PRN (15:30)
[2016-12-14] MEDS ORDERED: PROMETHAZINE 25 MG TAB PO PRN (15:30)
[2016-12-14] MEDS ORDERED: RHOGAM 300 MCG (1500 IU) INJ (J2790) IM SCH (15:30)
[2016-12-14] MEDS ORDERED: MEASLES,MUMPS,RUBELLA VACCINE INJ (MMR-II) (90707) SC SCH (15:30)
[2016-12-14] MEDS ORDERED: MOM 30ML SUSPENSION UDC PO PRN (15:30)
[2016-12-14] MEDS ORDERED: BICITRA 30ML SOLN UDC PO STA (15:51)
--- NOTE | 2016-12-14 17:21 | RO ---
DATE OF PROCEDURE: 12/14/2016 PREPROCEDURE DIAGNOSIS: POSTPROCEDURE DIAGNOSIS: PROCEDURE: SURGEON: Dr. Romel Adair PIGMENT PUMPER: ANESTHESIA: The patient is a 31-year-old 4, para 2-0-1-2 who was admitted this day, 12/14/2016, for active labor. complicated by a history of shoulder dystocia in first , excessive weight gain, questionable HSV without outbreaks with benign exam, no prophylactic and unaware of previous lab. The patient progressed to complete, complete, +3 with then several contractions of beginning to push, noted greater than 4 minute prolong deceleration with heart rate audibly down into the 50s or 60s with very slow return with oxygen, multiple positional changes. No Pitocin at that time. Epidural in place. With history of shoulder dystocia, non-reassuring heart rate status, as well as no descent noted with several contractions done, the patient was reviewed of the risks/benefits/indications/alternatives to continuing to push, delivery versus section. Recommendation for a primary low transverse section for above indications. Reviewed risks/benefits/alternatives/indications with patient and informed consent was obtained. Previously had reviewed and received verbal consent for blood transfusion if necessary. The risks, benefits, alternatives and indications reviewed with patient again and informed consent was obtained. The patient was taken to the operating room where epidural anesthesia was found to be adequate. She was then prepped and draped in a normal sterile fashion in dorsal supine position with a leftward tilt. Rios catheter had been removed for pushing and noted to be replaced at time of OR. heart rate tones in the OR were 120s, 130s. A Pfannenstiel skin incision was made with a scalpel and carried through to the underlying layer of fascia. Fascia was incised in midline and extended laterally with Garnica scissors. The superior aspect of the fascial incision was grasped with Ghazal clamps times two, elevated, the underlying rectus muscle dissected off bluntly with Garnica scissors and Bovie. Attention turned to the inferior aspect of the incision, which in a similar fashion was grasped, tented up with Ghazal clamps and the rectus muscle dissected off bluntly, aided with Garnica scissors. Rectus muscles were then in the midline. The Peritoneum was identified, tented up and entered digitally. The peritoneal incision was then extended horizontally and superiorly with good visualization of the bladder. The vesicouterine peritoneum was then identified and found to be well inferior of the pending hysterotomy site. It was then identified, grasped with pickups and entered sharply with Garnica scissors. The incision was extended laterally and a bladder flap was created digitally, further distancing the bladder from the planned hysterotomy site. A bladder blade was then introduced into the abdomen. Prior to insertion of bladder blade, noted that the Rios was not draining appropriately. It appeared to be distended. Asked nursing to reassess the Rios catheter. Subsequently noted apparent drainage of the bladder as the bladder receded far away from the planned hysterotomy site. Next, the lower uterine segment was incised in a transverse fashion with a scalpel. The amniotic sac was artificially ruptured, productive of meconium. This was known previously from artificial rupture of membranes (AROM). The bladder blade was removed. The infant was found to be in cephalic presentation. The baby was delivered through the hysterotomy site. The cord was doubly clamped and cut. The infant was handed off to the awaiting pediatricians and physician, which were in the room. Cord gases as well as cord blood sample were obtained. The placenta was then removed with gentle traction on the umbilical cord. The uterus was exteriorized and cleared of all clots and debris. The bladder blade was reintroduced again and the uterine incision was repaired with #0 Monocryl in a running locked fashion times two, the second layer being used to imbricate the hysterotomy in a horizontal fashion. Slight bleeding was noted below the hysterotomy site that was controlled with Bovie cautery. Anatomy visualization noted a large gravid uterus with bilateral appearing normal ovary and fallopian tubes. The posterior cul-de-sac was then irrigated with warm saline and the uterus was reintroduced into the abdomen. The paracolic gutters were reinspected and also found to be clear. The bladder blade was removed and hysterotomy site again noted to be hemostatic with close visualization. The fascia was then reapproximated with #0 Vicryl in a running fashion. The subcutaneous layer was closed with #3-0 Vicryl in an interrupted fashion times four. The skin was closed with #4-0 Monocryl in a subcuticular fashion without complication. The incision was then dressed with Steri-Strips, half-inch cut in half, as well as a pressure dressing. At the completion of the case, bimanual exam performed with good uterine tone and minimal vaginal bleeding. The patient tolerated the procedure well. Sponge, lap and needle counts were correct times three. The patient was taken to the recovery room in stable condition. 2 grams of Ancef provided prior to skin incision.
[2016-12-14] MEDS: PERCOCET 5MG/325MG TAB PO PRN (17:45)
[2016-12-14] MEDS: DOCUSATE SODIUM 100 MG CAP PO SCH (21:45)
[2016-12-14] MEDS: KETOROLAC 30 MG/ML VIAL (J1885) IV SCH (21:46)
[2016-12-15 02:22] VITALS: BP 100/51
[2016-12-15] MEDS: KETOROLAC 30 MG/ML VIAL (J1885) IV SCH ×3 (03:13→15:03)
[2016-12-15 06:29] VITALS: BP 110/58
[2016-12-15 07:03] LABS: MEAN CORPUSCULAR HEMOGLOBIN 30.2 pg (27.0-33.0); MEAN CORPUSCULAR HGB CONC 33.2 g/dl (32.0-36.5); MEAN CORPUSCULAR VOLUME 90.8 fl (80.0-96.0); RED CELL DISTRIBUTION WIDTH 13.7 % (11.5-14.5); WHITE BLOOD COUNT 12.4 K/mm3 (4.0-10.0)
--- NOTE | 2016-12-15 07:40 | IPN ---
DATE: 12/15/2016 This patient has requested circumcision of their male infant. After discussing risks and benefits of circumcision, the medical and nonmedical indications, the penile block and the aftercare, the patient and expressed understanding of the penile block and aftercare, signed and witnessed the consent form and we are awaiting clearance by the hypoid gear tester.
[2016-12-15] MEDS: PRENATAL VITAMIN TAB PO SCH (09:17)
[2016-12-15] MEDS: DOCUSATE SODIUM 100 MG CAP PO SCH ×2 (09:17→21:12)
[2016-12-15 10:00] VITALS: BP 99/56
[2016-12-15] MEDS: PERCOCET 5MG/325MG TAB PO PRN ×3 (13:20→21:13)
[2016-12-15 14:00] VITALS: BP 122/58
[2016-12-15 18:19] VITALS: BP 102/52
[2016-12-15 22:00] VITALS: BP 112/54
[2016-12-16] MEDS: PERCOCET 5MG/325MG TAB PO PRN ×2 (02:35→07:29)
[2016-12-16 06:01] VITALS: BP 105/59
[2016-12-16] MEDS: DOCUSATE SODIUM 100 MG CAP PO SCH (08:19)
[2016-12-16] MEDS: PRENATAL VITAMIN TAB PO SCH (08:19)
--- NOTE | 2016-12-16 08:50 | DSES ---
DATE OF ADMISSION: 12/14/2016 DATE OF DISCHARGE: This lady is a 31-year-old 4, now para 3, admitted in spontaneous labor, had a primary section. Delivered a live male infant 8 pounds 9 ounces, 3880 grams. scores of 8 and 9 at one and five minutes respectively. Arterial pH 7.24, base excess -5.6, venous pH 7.28, base excess -4.4. On her second day, we discussed phlebitis, cystitis, mastitis, endometritis and cellulitis, diet, excise, pain management, perineal, breast and wound care. She was given medications at discharge. The rest of the examination: She is normocephalic, atraumatic. Neck: Full range of motion. Pupils equal and reactive to light. Distal pulses are symmetric. No evidence of deep vein thrombosis (DVT) pulmonary embolism (PE) or superficial phlebitis. Chest is clear bilaterally to bases. No wheezes or rhonchi. Thyroid is midline, nontender. Uterus is two below. Lochia is moderate. Incision is clean and dry. Four quadrant bowel sounds are noted. She has no rashes, lesions or pruritus. 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 No arthralgia, myalgia. No complaints of cough, wheezes, shortness of breath or dyspnea on exertion. No chest pain. Not bleeding. Neurologic complete. No incontinence, urgency or frequency. No nausea, vomiting, diarrhea or constipation. No diabetic issues. No past significant medical or surgical history. The family history is noncontributory. She does not smoke or drink, does not abuse drugs. She is . There is no domestic violence. In summary, we have a lady who had came in with active labor, nonreassuring heart tones, had a primary section of a live male infant. Medications were given at discharge. The patient has a 2-week incision check, 6-week check. The hemoglobin on admission was 14.8, hematocrit 44.7, platelets 157. Discharge hemoglobin 10.9, hematocrit 32.7 and platelets are 124. Her discharge blood pressure is 105/59, respirations 18, pulse 75, temperature is 97.3. The patient and baby are well and discharged to followup in two weeks' time in the office. Copy To: Ravi CASTRO
[2016-12-16] MEDS ORDERED: COLA100C3 PO (11:47)
[2016-12-16] MEDS ORDERED: PERC5TAB6 PO (11:47)
[2016-12-16] MEDS ORDERED: OXYC1TAB23 PO (11:50)
== END 2016-12-16 12:20 | disposition home or self-care (01) | DRG 766 ==
LOC: M LDO 07:23 → M LDI 08:05 → M OBS 17:33
PROVIDERS: ADMIT Student in an Organized Health Care Education/Training Program; ATTEND Student in an Organized Health Care Education/Training Program
PROC: 10D00Z1 Extraction of Products of Conception, Low, Open Approach (ICD-10-PCS; principal; 2016-12-14)
DX: O48.0 Post-term pregnancy (principal); Z3A.40 40 weeks gestation of pregnancy; O76 Abnormality in fetal heart rate and rhythm complicating labor and delivery; O32.4XX0 Maternal care for high head at term, not applicable or unspecified; O62.8 Other abnormalities of forces of labor; O77.0 Labor and delivery complicated by meconium in amniotic fluid; Z37.0 Single live birth